=== PATIENT | male | born 1975 | race Caucasian/White ===

== ENCOUNTER 2021-11-06 17:11 | Emergency (ER) | payer OTHER ==
[2021-11-06 18:52] LABS: HEMOGLOBIN 14.5 gm/dl (14.0-17.5); RED BLOOD COUNT 4.71 M/UL (4.20-5.50)
[2021-11-06 19:17] LABS: BUN/CREATININE RATIO 11 (0-10)
[2021-11-06] MEDS ORDERED: ASPIRIN EC81 MG PO (22:02)
== END 2021-11-06 22:15 | disposition home or self-care (01) ==
LOC: ER1 17:11
PROVIDERS: Physician Assistant Medical
DX: I73.9 Peripheral vascular disease, unspecified (principal); F17.210 Nicotine dependence, cigarettes, uncomplicated
CPT/HCPCS: 75635; 80053; 85025; 85610; 85730; 93926; 93971; 99284; Q9967

== ENCOUNTER → 2021-12-24 | Outpatient (CLI) | payer OTHER ==
[~2021-12-24] MED LIST: ASPIRIN EC81 MG PO
== END ==
LOC: HEART 5 08:00
DX: R06.00 Dyspnea, unspecified (principal)
CPT/HCPCS: 93306